=== PATIENT | male | born 1995 | race Caucasian/White ===

== ENCOUNTER 2017-02-27 12:05 | Emergency (ER) | payer OTHER ==
[~2017-02-27] VITALS: Ht 182.9 cm; Wt 105.2 kg
[2017-02-27 12:12] VITALS: TEMP 36.4; Ht 182.9 cm; Wt 105.2 kg
[2017-02-27] MEDS ORDERED: ONDANSETRON INJ 2 MG/ML 2 ML VIAL ONE (12:28)
[2017-02-27] MEDS ORDERED: KETOROLAC TROMETHAMINE 30 MG/ML VIAL ONE (12:29)
[2017-02-27] MEDS ORDERED: FENTANYL CITRATE INJ 50 MCG/1 ML 2 ML VIAL IV STA (12:38)
[2017-02-27] MEDS ORDERED: SODIUM CHLORIDE 0.9% 1000ML 1,000 ML IV STA (12:38)
[2017-02-27 13:08] LABS: URINE APPEARANCE TURBID (CLEAR); URINE BILIRUBIN NEG (NEG); URINE COLOR YELLOW; URINE NITRITE NEG (NEG); URINE PH 7.5 (4.5-7.5); URINE SPECIFIC GRAVITY 1.021 (1.000-1.030); UROBILINOGEN NEG (NEG)
[2017-02-27 13:14] LABS: MANUAL MICROSCOPIC REQUIRED? NO; REVIEW REQ? NO
[2017-02-27 13:21] LABS: HEMATOCRIT 45.5 % (42-52); MEAN CELL VOLUME 86.2 fL (80-100); MEAN CORPUSCULAR HEMOGLOBIN 30.3 pg (25-34); MEAN CORPUSCULAR HGB CONC 35.2 g/dl (32-36); PLATELET COUNT 197 K/uL (130-400); RED BLOOD COUNT 5.28 M/uL (4.7-6.1); WHITE BLOOD COUNT 12.92 K/uL (4.8-10.8)
[2017-02-27 13:37] LABS: BUN/CREATININE RATIO 10.8 (10-20); CALCIUM 9.4 mg/dl (8.5-10.1); CREATININE 1.2 mg/dl (0.60-1.40); POTASSIUM 3.5 mmol/L (3.5-5.1)
[2017-02-27] MEDS ORDERED: ONDANSETRON INJ 2 MG/ML 2 ML VIAL IV STA (13:38)
[2017-02-27] MEDS ORDERED: FENTANYL CITRATE INJ 50 MCG/1 ML 2 ML VIAL IV ONE (13:45)
[2017-02-27 13:47] LABS: BASO % 0.3 %; BASO ABS # 0.04 K/uL (0-0.2); COMPLETE YES; EOS % 0.9 %; IG% 0.3 %; LYMPH % 8.8 %; LYMPH ABS # 1.14 K/uL (1.2-3.4); NEUT % 85.7 %
--- NOTE | 2017-02-27 13:49 | DIAGNOSTIC IMAGING REPORT ---
CT OF THE ABDOMEN AND PELVIS WITHOUT CONTRAST, STONE PROTOCOL CLINICAL HISTORY: Flank pain and hematuria. Back pain. COMPARISON STUDY: None. TECHNIQUE: Helical axial images of the abdomen and pelvis were obtained without IV or oral contrast according to renal stone protocol. FINDINGS: A few small subpleural nodules within visualized portions of the lower lungs are likely benign. There is a punctate calculus within the lower pole of the left kidney. There are a few suspected punctate right renal calculi. There is a duplex left collecting system with incomplete duplication of the left ureters. The ureters likely join distally. Note is made of a 4 mm distal left ureteral calculus with moderate left hydronephrosis. There are no right ureteral ureteral. Evaluation of the remainder of the abdomen and pelvis is suboptimal on this unenhanced exam. The spleen is mildly enlarged. The liver, adrenal glands and pancreas are normal. There is no evidence for a bowel obstruction. Submucosal fat deposition within the colon is chronic. Skeletal structures are unremarkable. IMPRESSION: 1. 4 mm distal left ureteral calculus with moderate left hydroureteronephrosis. 2. 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 3. Punctate left renal calculus with possible punctate right renal calculi. Electronically signed by: Jaya Galvan M.D. 02/27/2017 1:48 PM Dictated Date/Time: 02/27/2017 1:40 PM
[2017-02-27] MEDS ORDERED: HYDR-5688 PO (14:37)
[2017-02-27] MEDS ORDERED: TAMS0.4C38 PO (14:37)
[2017-02-27 14:50] VITALS: BP 110/70; PULSE 70; O2SAT 98
--- NOTE | 2017-02-27 16:03 | EMERGENCY ROOM VISIT NOTE ---
ED Visit Note First contact with patient: 12:19 Chief Complaint: I'm having left lower back pain History of Present Illness: Mr. Andrade is a 21 year-old white male who ambulates into the ED accompanied by his girlfriend complaining of lower back pain. Historically patient reports history of kidney stones at the age of 11 without complications. Patient reports an acute onset of left flank pain that started approximately 2 hours ago. Since that time the pain has been constant but has slightly waxed and waned in intensity. The pain is currently described as sharp and cramping located over the left T12- L1 area. The pain is radiating around the abdomen and into the left lower quadrant. The pain worsens standing and walking. He has not identified any alleviating factors related to the pain. He has not taken any medications for his discomfort prior to arrival at the hospital. Associated with his pain he has been nauseated and has vomited, he is having chills and sweats. Patient denies skin eruptions, skin color changes, upper respiratory tract symptoms, shortness of breath, chest pain, diarrhea, constipation, rectal bleeding, black/tarry stools, urinary symptoms, hematuria, genital paresthesias , bowel and bladder dysfunction, lower extremity weakness/numbness/tingling. Review of Systems: As noted above in history of present illness. All body systems were reviewed and found to be negative as noted above. Past Medical History: As previously noted and bronchitis. Current Medications: Patient denies. Allergies to Medications: Morphine, penicillin and sulfa. Social History: Patient is currently employed; he feels safe in his home environment; he denies tobacco and alcohol use. Physical Examination: Vital Signs: Date Time Temp Pulse Resp B/P (MAP) Pulse Ox O2 Delivery O2 Flow Rate FiO2 02/27/17 14:50 70 18 110/70 98 Room Air 02/27/17 13:39 71 18 150/86 99 Room Air 02/27/17 12:12 36.4 62 18 156/100 98 Room Air GENERAL: 21-year-old male in moderate distress due to pain, nontoxic-appearing, afebrile and hemodynamically stable. NEUROLOGICAL: Awake, alert and oriented to person, place and time. Answering questions appropriately and following commands. Normal gait. Good hand eye coordination. SKIN: Warm, dry and pink. No soft tissue eruptions or trauma noted. HEENT: Atraumatic and normocephalic. PERRLA. Sclera white and conjunctiva pink. Oral cavity moist and pink. Pharynx is nonerythematous or edematous. Speech normal. No lymphadenopathy. Trachea midline. No jugular venous distention. BACK: No tenderness over the bony spine. Mild right sided CVA tenderness. THORAX: Lungs sounds are clear to auscultation and equal bilaterally with symmetrical chest wall. ABDOMEN: Flat, soft and nontender. Positive bowel sounds in all quadrants. No guarding, rigidity or organomegaly. EXTREMITIES: Moves all extremities well on command and with purpose. All distal neurovascular statuses are intact and equal bilaterally. ED Course: Patient is assessed as noted above. Laboratory Testing: Test 02/27/17 12:40 02/27/17 13:01 Range/Units Urine Color YELLOW Urine Appearance TURBID CLEAR Urine pH 7.5 4.5-7.5 Urine Specific [place] 1.021 1.000-1.030 Urine Protein NEG NEG Urine Glucose (UA) NEG NEG Urine Ketones NEG NEG Urine Occult Blood TRACE NEG Urine Nitrite NEG NEG Urine Bilirubin NEG NEG Urine Urobilinogen NEG NEG Urine Leukocyte Esterase NEG NEG Urine WBC (Auto) 1-5 0-5 /hpf Urine RBC (Auto) 0-4 0-4 /hpf Urine Hyaline Casts (Auto) 1-5 0-5 /lpf Urine Epithelial Cells (Auto) 10-20 0-5 /lpf Urine Bacteria (Auto) NEG NEG White Blood Count 12.92 4.8-10.8 K/uL Red Blood Count 5.28 4.7-6.1 M/uL Hemoglobin 16.0 14.0-18.0 g/dL Hematocrit 45.5 42-52 % Mean Corpuscular Volume 86.2 80-100 fL Mean Corpuscular Hemoglobin 30.3 25-34 pg Mean Corpuscular Hemoglobin Concent 35.2 32-36 g/dl Platelet Count 197 130-400 K/uL Mean Platelet Volume 10.0 7.4-10.4 fL Neutrophils (%) (Auto) 85.7 % Lymphocytes (%) (Auto) 8.8 % Monocytes (%) (Auto) 4.0 % Eosinophils (%) (Auto) 0.9 % Basophils (%) (Auto) 0.3 % Neutrophils # (Auto) 11.07 1.4-6.5 K/uL Lymphocytes # (Auto) 1.14 1.2-3.4 K/uL Monocytes # (Auto) 0.52 0.11-0.59 K/uL Eosinophils # (Auto) 0.11 0-0.5 K/uL Basophils # (Auto) 0.04 0-0.2 K/uL RDW Standard Deviation 40.4 36.4-46.3 fL RDW Coefficient of Variation 12.8 11.5-14.5 % Immature Granulocyte % (Auto) 0.3 % Immature Granulocyte # (Auto) 0.04 0.00-0.02 K/uL Sodium Level 142 136-145 mmol/L Potassium Level 3.5 3.5-5.1 mmol/L Chloride Level 108 98-107 mmol/L Carbon Dioxide Level 26 21-32 mmol/L Anion Gap 8.0 3-11 mmol/L Blood Urea Nitrogen 13 7-18 mg/dl Creatinine 1.20 0.60-1.40 mg/dl Est Creatinine Clear Calc Drug Dose 123.1 ml/min Estimated GFR () 100.3 Estimated GFR (Non- 86.5 BUN/Creatinine Ratio 10.8 10-20 Random Glucose 111 70-99 mg/dl Calcium Level 9.4 8.5-10.1 mg/dl Total Bilirubin 1.1 0.2-1 mg/dl Direct Bilirubin 0.2 0-0.2 mg/dl Aspartate Amino Transf (AST/SGOT) 31 15-37 U/L Alanine Aminotransferase (ALT/SGPT) 47 12-78 U/L Alkaline Phosphatase 66 45-117 U/L Total Protein 7.5 6.4-8.2 gm/dl Albumin 4.1 3.4-5.0 gm/dl Lipase 93 73-393 U/L Noncontrast Abdominal/Pelvic CT: Was reviewed by myself and read by the radiologist a 4 mm distal left ureter calculus with moderate left hydroureteronephrosis, duplex left collection system with incomplete duplication of the left ureter, punctate left renal calculus and punctate right renal calculi. Patient was hydrated with normal saline, he received 4 mg of Zofran IV and 30 mg of Toradol IV on nursing protocol. During his stay in the emergency department he received a total of 200 g of fentanyl IV for pain and additional 4 mg of Zofran IV for nausea. Patient was reassessed multiple times during his stay in the emergency department. Patient's case was reviewed with Dr. Betancourt; we agreed on diagnostic approach, treatment, disposition and plan. Patient was educated about today's findings and instructed on his treatment plan ; he verbalizes understanding and agreement with this plan. Clinical Impression: Left renal calculus with hydroureteronephrosis. Decision-Making: Initially my differential diagnosis I considered pyelonephritis , musculoskeletal disorder, ureter calculus, testicular torsion and other causes. Disposition: Patient discharged home in stable condition; prior to departure he was reassessed and subjectively reported he was feeling better and rated his discomfort 2/10. Plan: Patient was placed in a sliding pain scale of ibuprofen, acetaminophen and [place] ; he was educated about narcotic precautions's name was checked in this state database and no red flags were noted. Patient was prescribed 0.4 mg of Flomax once a day until passage of calculus. Patient was encouraged to increase clear fluids strain all urine and collect all stones for analysis. Patient was encouraged to follow-up with Dr. Red, urology for definitive care and treatment. Patient was encouraged return the ED for worsening/uncontrolled pain, fevers, siobhan bloody urine or any new/concerning symptoms.
== END 2017-02-27 15:03 | disposition home or self-care (01) ==
LOC: C.EDB 12:08
DX: N13.2 Hydronephrosis with renal and ureteral calculous obstruction (principal)